=== PATIENT | female | born 1945 | race Caucasian/White ===

== ENCOUNTER → 2016-02-13 | Outpatient (CLI) | payer OTHER, MEDICARE | LOC: MMPC 10:00 | PROVIDERS: ATTEND Podiatrist Foot & Ankle Surgery | DX: B35.1 Tinea unguium (principal) | CPT/HCPCS: 99212; G0463 ==

== ENCOUNTER → 2016-05-13 | Outpatient (CLI) | payer OTHER, MEDICARE | LOC: MMPC 09:00 | PROVIDERS: ATTEND Physician Assistant Medical | DX: H93.8X3 Other specified disorders of ear, bilateral (principal) | CPT/HCPCS: 99213; G0463 ==

== ENCOUNTER → 2016-06-04 | Outpatient (CLI) | payer OTHER, MEDICARE ==
[2016-06-04 07:52] LABS: BASOPHILS # (AUTO) 0.05 10*3/UL; BASOPHILS % (AUTO) 0.7 % (0-1); EOSINOPHILS % (AUTO) 1.5 % (0-8); HEMATOCRIT 45.2 % (37.0-47.0); LYMPHOCYTES # (AUTO) 1.76 10*3/uL; MEAN CORPUSCULAR HEMOGLOBIN 30.6 PG (27-31); MEAN CORPUSCULAR HGB CONC 33.2 g/dL (33-37); MEAN CORPUSCULAR VOLUME 92.2 FL (81-99); MEAN PLATELET VOLUME 9.1 FL (7.4-12.2); MONOCYTES # (AUTO) 0.86 10*3/UL (0.3-0.8); MONOCYTES % (AUTO) 12.5 % (5-15); NEUTROPHILS # (AUTO) 4.09 10*3/UL; NEUTROPHILS % (AUTO) 59.4 % (50-80)
[2016-06-04 07:54] LABS: PLATELET MORPHOLOGY COMMENT NORMAL MORPHOLOGY (NORM); RBC MORPHOLOGY COMMENT NORMAL MORPHOLOGY (NORM); WBC MORPHOLOGY COMMENT NORMAL MORPHOLOGY (NORM)
[2016-06-04 08:02] LABS: HEMOGLOBIN A1C 6.13 % (4.2-6.0)
[2016-06-04 08:03] LABS: CREATININE, URINE 97.9 MG/DL (15-500)
[2016-06-04 08:06] LABS: BLOOD UREA NITROGEN 14 mg/dL (7-22); CHOL/HDL RATIO 4.68 RATIO (0-4.0); EST GLOMERULAR FILTRATION > 60 (>60 ml/min/1.73m(2)); HDL CHOLESTEROL 44 mg/dL (40-150); SERUM ALBUMIN 3.8 g/dL (3.5-4.8); SERUM CHOLESTEROL 206 mg/dL (120-200)
== END ==
LOC: LAB 07:20
PROVIDERS: ATTEND Nurse Practitioner Family
DX: E78.5 Hyperlipidemia, unspecified (principal); I10 Essential (primary) hypertension; E03.9 Hypothyroidism, unspecified; R73.09 Other abnormal glucose
CPT/HCPCS: 80053; 80061; 82043; 83036; 84443; 85025; G0439

== ENCOUNTER → 2016-06-10 | Outpatient (CLI) | payer OTHER, MEDICARE ==
--- NOTE | 2016-06-10 15:40 | DI ---
CT BONE DENSITOMETRY OF THE SPINE AND HIP, 06/10/2016 12:59 PM : Clinical History: Osteopenia. Previous Exam: None at this facility. 3D Quantitative CT (QCT) Bone Mineral Densitometry: The [place] scans are normal. Low dose scans are obtained of the lumbar spine and sampling is obtaine d through the midbodies of L1 and L2. The average volumetric bone mineral density (BMD) of the lumbar spine is 89.9 mg/cm3. This value corresponds to a volumetric T-score of -2.7 and Z-score of 0.3 as a ssessed by this BMD software. Volumetric 3D QCT and areal DEXA T-scores and Z-scores are not directly equivalent. Using the [employer]'s (ACR) volumetric QCT trabecular spine BMD conv ersion table that is closely equivalent to the areal WHO diagnostic categories, this patient falls in to the category of osteopenia of the lumbar spine. CT X-Ray Absorptiometry (CTXA) Hip Bone Mineral Densitometry: Low dose scans are obtained through the hips for assessment of bone mineral density (BMD) and T-score s and Z-scores of the left hip. Total hip BMD: 0.699 mg/cm2 T-score: -1.92 Z-score: Femoral neck BMD: 0.589 mg/cm2 T-score: -1.86 Z-score: Note: T-scores of the spine and hip exhibit discordant readings approximately 40% of the time in eval uated patients. Changes in BMD determined either by volumetric QCT or areal DEXA are more reliable in assessment of change in a patient's BMD status rather than changes in T-scores. The CTXA hip CT bone mineral density measurements and the resultant T-scores and Z-scores are exact hip DEXA scan equival ents. The femoral neck T-score can be used in the WHO's FRAX program for assessing an untreated patie nt's 10 year fracture risk. READING: Osteopenia of the lumbar spine and left hip.
== END ==
LOC: CT 12:53
PROVIDERS: ATTEND Nurse Practitioner Family
DX: M85.80 Other specified disorders of bone density and structure, unspecified site (principal)
CPT/HCPCS: 77078

== ENCOUNTER 2016-07-11 09:46 | Emergency (ER) | payer OTHER, MEDICARE ==
[2016-07-11] MEDS ORDERED: Sodium Chloride 0.9% 1,000 ML PRIMARY IV ONE (10:09)
[2016-07-11] MEDS ORDERED: KETOROLAC 15 MG/1 ML VIAL IVP ONE (10:09)
[2016-07-11] MEDS ORDERED: ONDANSETRON 4 MG/2 ML VIAL IVP ONE (10:09)
[2016-07-11 10:11] VITALS: RESP 16; TEMP 96.8
--- NOTE | 2016-07-11 10:16 | PDOC ---
Abdomen/Flank HPI - General Chief Complaint: Lower Extremity Problem/Injury Stated Complaint: lower quad pain Date Seen by Provider: 07/11/16 Time Seen by Provider: 10:11 Source: POSITIVE: Patient Exam Limitations: POSITIVE: No limitations Nurse's Notes Reviewed & Considered: Yes - History of Present Illness Initial Comments: This very pleasant 70-year-old female comes in today with a chief complaint of right lower quadrant and right flank pain. For approximately a week and a half patient has been having pain in her right flank radiating into her right groin. This seems to occur worse at night when she is lying down, particularly when she is lying on her left side. Today the pain has gotten worse. She denies any headache, changes in her vision, or ringing in her ears. She denies any chest pain, shortness of breath, she does have an occasional cough in the mornings. She denies any fever chills or sweats. She denies vomiting and diarrhea but does have some nausea, in addition she has right lower quadrant pain as well as right flank pain with radiation into her right groin. She further denies any hematuria, dysuria, no urinary problems. No rashes. Body Location Affected: REPORTS: Abdomen, Back Timing: REPORTS: Intermittent Duration: >1 week Severity: Moderate Quality: REPORTS: Cramping, "Pain", Throbbing Abdominal Pain Onset Location: REPORTS: RLQ, Flank Abdominal Pain Radiation: REPORTS: Groin Context: REPORTS: Sleep Modifying Factors: improves with: Movement, Walking Associated Symptoms: REPORTS: Nausea Similar Symptoms Previously: No Recent Care Received: REPORTS: Denies Any Prior Injuries Related to Current Complaint?: No - Patient Home Medications Home Medications: Home Medications Aspirin [Aspir 81] 81 mg PO DAILY 07/24/11 Multivitamin [Multi-Day Vitamins] 1 tab PO DAILY tab 02/16/14 Vit C/Vit E/Lutein/Min/[place]-3 [Ocuvite Softgel] 1 cap PO QD cap 01/09/16 Hydrochlorothiazide 1 tab ORAL QD #90 tab 06/04/16 - Patient Allergies Allergies/Adverse Reactions: Allergies Allergy/AdvReac Type Severity Reaction Status Date / Time No Known Drug Allergies Allergy NOT Verified 07/11/16 09:59 APPLICABLE Past Medical History - heen HEENT History: Denies History Cardiovascular History: Hypertension Respiratory History: Denies History, Snoring Gastrointestinal History: Denies History Genitourinary History: Denies History Endocrine History: Denies History Musculoskeletal History: Back Pain Prosthesis or Implant: No Additional Musculoskeletal History: KNEE PAIN Neurological History: Denies History Blood Disorders: Denies History Psychiatric History: Denies History History of Sexually Transmitted Diseases: No Female Reproductive History: Denies History LMP: ? Cancer History: Denies History In Past Year Been Physically Harmed or Verbally Threatened: No History of MDRO: No History of Other Communicable Diseases: No Tobacco Use: Never Smoker Alcohol Use: Rarely Substance Use Type: None Previous Surgical History: Yes Type / Date of Surgery: HYSTEROSCOPY, D&C/ BREAST BX/ SAURABH/ LEFT THUMB TRIGGER FINGER RELEASE 2013 Anesthesia Reactions: No Malignant Hyperthermia: No Significant Family History: Diabetes, Hypertension Additional Family History: MOTHER- HTN, DM ROS - Limitations ROS Limitations: No Limitations Constitution: REPORTS: Denies Symptoms Cardiovascular: REPORTS: Denies Cardiac Symptoms Respiratory: REPORTS: Cough Non Productive (Cough occurs occasionally in the mornings.) Neurological: REPORTS: Denies Neuro Symptoms Gastrointestinal: REPORTS: Abdominal Pain, Nausea Endocrine: REPORTS: Denies Symptoms Musculoskeletal: REPORTS: Back Pain (Right flank) Genitourinary: REPORTS: Denies Symptoms Eyes: REPORTS: Denies Symptoms ENT: REPORTS: Denies Symptoms Skin: REPORTS: Denies Skin Symptoms Lympathic: REPORTS: Denies Lympathic Symptoms Immunologic: POSITIVE: Denies Symptoms Psychiatric: POSITIVE: Denies Psych Symptoms Abdominal/Flank Pain PE - General Appearance General Appearance: POSITIVE: Alert, Cooperative, No Acute Distress, No Evidence of Trauma - HEENT HEENT: POSITIVE: Head Inspection Nml, Eyes Inspection Nml, Ears Inspection Nml, Nose Inspection Nml, PERRL, EOMI - Neck Neck: POSITIVE: Normal Inspection, No Apparent Injury - Respiratory Respiratory: POSITIVE: No Respiratory Distress, Breath Sounds Normal, Chest Non- Tender - Cardiovascular Cardiovascular: POSITIVE: Regular Rate and Rhythm, Heart Sounds Normal - Chest Chest: POSITIVE: Non Tender - Abdomen Abdomen: Soft: (All Quadrants), Normal Bowel Sounds: (All Quadrants), Denies Tenderness: (LUQ), (RUQ), (LLQ), Tenderness Noted: (RLQ) - Back Back: POSITIVE: Normal Inspection - Skin Skin: POSITIVE: Intact, Normal For Race, Warm, Dry, No Rash - Extremities Extremity: Non-Tender: (All Extremities), Normal ROM: (All Extremities), Normal Inspection: (All Extremities), Pelvis Stable: (All Extremities) - Neurological Neurological: POSITIVE: Affect Apporpriate, Oriented X3, Motor Normal, Sensation Normal - Psychological Psychiatric: POSITIVE: Affect Appropriate, Mood Appropriate Abdomen Progress - Results Reviewed by me Xrays/CTs/US Reviewed by me: Yes Discussed with Radiologist: Yes Lab Results Reviewed: Yes Lab Results:: Laboratory Results 07/11/16 07/11/16 Range/Units 09:45 10:17 WBC 6.55 (4.8-10.8) 10^3/uL RBC 4.89 (4.20-5.40) 10^6/uL Hgb 15.0 (12.0-16.0) g/dL Hct 45.5 (37.0-47.0) % MCV 93.0 (81-99) FL MCH 30.7 (27-31) PG MCHC 33.0 (33-37) g/dL RDW Std Deviation 49.6 (39-50) fL RDW Coeff of Kristen 15.0 H (11.5-14.5) % Plt Count 269 (140-350) 10*3/uL MPV 9.1 (7.4-12.2) FL Immature Gran % (Auto) 0.2 (0-5) % Neut % (Auto) 62.4 (50-80) % Lymph % (Auto) 22.7 (10-50) % [place] % (Auto) 12.4 (5-15) % Eos % (Auto) 1.2 (0-8) % Baso % (Auto) 1.1 H (0-1) % Immature Gran # (Auto) 0.01 10*3/UL Neut # (Auto) 4.09 10*3/UL Lymph # (Auto) 1.49 10*3/uL [place] # (Auto) 0.81 H (0.3-0.8) 10*3/UL Eos # (Auto) 0.08 10*3/UL Baso # (Auto) 0.07 10*3/UL WBC Morphology Comment Normal morphology (NORM) Plt Morphology Comment Normal morphology (NORM) RBC Morph Comment Normal morphology (NORM) Sodium 141 (135-145) meq/L Potassium 3.5 L (3.8-5.2) meq/L Chloride 102 (98-112) meq/L Carbon Dioxide 29 (23-33) meq/L Anion Gap 10 (5-20) BUN 15 (7-22) mg/dL Creatinine 0.6 (0.50-1.20) mg/dL Estimated GFR > 60 (>60 ml/min/1.73m(2)) BUN/Creatinine Ratio 25.00 H (6-20) Glucose 108 (78-110) mg/dL Calculated Osmolality 293.0 H (267-292) mOsm/kg Calcium 8.7 (8.7-10.7) mg/dL Total Bilirubin 0.9 (0.3-1.2) mg/dL AST 31 (8-39) IU/L ALT 39 (9-52) IU/L Alkaline Phosphatase 87 (38-126) IU/L C-Reactive Protein 0.6 (0.0-0.9) mg/dL Total Protein 7.5 (6.1-8.0) g/dL Albumin 4.3 (3.5-4.8) g/dL Globulin 3.3 (2.50-4.10) g/dL Albumin/Globulin Ratio 1.30 (1.3-2.0) mg/g Ur Collection Type Clean catch urine Urine Color Yellow Urine Clarity Clear (CLEAR) Urine pH 8.5 (5.0-8.5) Ur Specific [place] 1.015 (1.005-1.030) Urine Protein 30 (NEG) mg/dl Urine Glucose (UA) Negative (NEG) mg/dL Urine Ketones Negative (NEG) Urine Occult Blood Negative (NEG) Urine Nitrate Negative (NEG) Urine Bilirubin Negative (NEG) Urine Urobilinogen 2.0 (0.2) EU/dL Ur Leukocyte Esterase Negative (NEG) Urine RBC None (NONE) /hpf Urine WBC 1-3 (NONE) Ur Squamous Epith Cells Many (NONE) Ur Renal Epithelial Cell None (NONE) Urine Crystals None Urine Bacteria Rare (NONE) Urine Casts None (NONE) Urine Mucus Few (NONE) Urine Trichomonas None (NONE) Urine Yeast None (NONE) Ur Culture Indicated? Culture not set - Patient's Progress Pain Medication Addressed: POSITIVE: Yes Re-examine Time: 14:48 Status: POSITIVE: Improved MDM / ED Course: Patient was examined, an IV started, blood drawn and sent to the lab for studies , radiographic examinations were obtained. Patient received a liter of normal saline, Zofran, and Toradol. Her pain did improve. Findings: CBC is unremarkable, comprehensive metabolic panels within normal limits, urinalysis is negative. CT scan shows calcified mass in the uterus. Ultrasound shows calcification present and uterus reminiscent of a fibroid. Assessment: Abdominal pain of unknown etiology. This is likely related to the fibroid seen in the uterus. Plan: Discharge home. 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 - Consult Counseled: POSITIVE: Patient, RE: Lab Results, RE: Radiology Results, RE: DX, RE : Need for F/U Patient Care Time - Estimated PCT Patient Care Time (In Minutes): 45 Vital Signs - Recent Vital Signs Vital Signs: Vital Signs (Last 8 hours) Temp Pulse Resp BP Pulse Ox 07/11/16 09:58 96.8 F 103 H 16 135/97 96 07/11/16 09:46 96.8 F 103 H 16 135/97 96 - VS Reviewed Vital Signs Reviewed: Yes Discharge Clinical Impression: Abdominal pain, Uterine leiomyoma Discharge Disposition: Discharged to Home Condition: Stable Patient Instructions Given at Discharge: Acute Abdominal Pain (ED), Uterine Fibroids (ED)
[2016-07-11 10:17] LABS: BILIRUBIN,URINE NEGATIVE (NEG); CLARITY,URINE CLEAR (CLEAR); COLOR,URINE YELLOW; GLUCOSE, URINE (UA) NEGATIVE (NEG); NITRATE,URINE NEGATIVE (NEG); OCCULT BLOOD,URINE NEGATIVE (NEG); PH,URINE 8.5 (5.0-8.5); PROTEIN,URINE 30 mg/dl (NEG)
[2016-07-11 10:23] LABS: BASOPHILS # (AUTO) 0.07 10*3/UL; BASOPHILS % (AUTO) 1.1 % (0-1); EOSINOPHILS # (AUTO) 0.08 10*3/UL; EOSINOPHILS % (AUTO) 1.2 % (0-8); HEMATOCRIT 45.5 % (37.0-47.0); LYMPHOCYTES # (AUTO) 1.49 10*3/uL; MEAN CORPUSCULAR HEMOGLOBIN 30.7 PG (27-31); MEAN PLATELET VOLUME 9.1 FL (7.4-12.2); MONOCYTES # (AUTO) 0.81 10*3/UL (0.3-0.8); MONOCYTES % (AUTO) 12.4 % (5-15); NEUTROPHILS # (AUTO) 4.09 10*3/UL; NEUTROPHILS % (AUTO) 62.4 % (50-80); RED BLOOD COUNT 4.89 10^6/uL (4.20-5.40)
[2016-07-11 10:24] LABS: SQUAMOUS EPITHELIAL CELL,UR MANY; URINE SAMPLE TYPE CLEAN CATCH URINE
[2016-07-11 10:25] LABS: BACTERIA,URINE RARE
[2016-07-11 10:25] LABS: PLATELET MORPHOLOGY COMMENT NORMAL MORPHOLOGY (NORM); RBC MORPHOLOGY COMMENT NORMAL MORPHOLOGY (NORM); WBC MORPHOLOGY COMMENT NORMAL MORPHOLOGY (NORM)
[2016-07-11 10:43] LABS: BLOOD UREA NITROGEN 15 mg/dL (7-22); C-REACTIVE PROTEIN 0.6 mg/dL (0.0-0.9); CALCIUM 8.7 mg/dL (8.7-10.7); EST GLOMERULAR FILTRATION > 60 (>60 ml/min/1.73m(2)); SERUM ALBUMIN 4.3 g/dL (3.5-4.8)
--- NOTE | 2016-07-11 11:51 | DI ---
HISTORY: Right lower quadrant pain for one week. TECHNIQUE: Contiguous axial enhanced images of the abdomen and pelvis were obtained from the lung ba ses through the ischial tuberosities. The images were then submitted for interpretation. FINDINGS: Limited sections of the lung bases demonstrate no focal pulmonary mass. The liver, spleen, surgically removed gallbladder, atrophied pancreas, both kidneys, and both adrenal glands demonstrate no acute findings. The stomach is collapsed, with residue. There is thickening of the GE junction. The aorta and IVC demonstrate no acute findings. There is atherosclerotic calcification of the aorta . There is moderate to severe constipation. There is no free air or free fluid. The small bowel loops are not dilated. Segmental thickening of the sigmoid colon is probably due to a phase of peristalsi s, although correlation with colonoscopy is recommended especially in this age group. There is no ob struction. The appendix is not clearly identified, although there are no secondary signs of appendicitis. The uterus is enlarged, with a focal calcification measuring approximately 3.5 cm. Suggest correlati on with pelvic ultrasound. Uterine fibroids likely. Bilateral adnexal densities favored to be ovari an in origin. This can be confirmed with a pelvic ultrasound. The urinary bladder is partially collapsed. Visualized osseous structures demonstrate no destructive abnormality. There is diffuse degenerative change. IMPRESSION: 1. There is moderate to severe constipation. There is no free air or free fluid. The small bowel lo ops are not dilated. Segmental thickening of the sigmoid colon is probably due to a phase of perista lsis, although correlation with colonoscopy is recommended especially in this age group. There is no obstruction. 2. The uterus is enlarged, with a focal calcification measuring approximately 3.5 cm. Suggest correl ation with pelvic ultrasound. Uterine fibroids likely. Bilateral adnexal densities favored to be ov ivan in origin. This can be confirmed with a pelvic ultrasound.
--- NOTE | 2016-07-11 14:25 | DI ---
HISTORY: Abdominal pain. TECHNIQUE: Sonographic images, including transvaginal images of the pelvis were obtained and submitte d for interpretation. FINDINGS: The uterus measures 9.9 x 4.3 x 5.5 cm and is anteverted. The right ovary measures 2.2 x 1.6 x 1.5 cm. The left ovary is not well-visualized. There is no large mass in the left adnexa. Normal arterial waveforms noted within the right ovary. There is a calcified lesion within the uterus measuring approximately 3.6 x 3.6 x 3.4 cm at the fundu s. This is reminiscent of calcified fibroid. There is a tiny echogenic lesion in the cervix with no significant vascular flow (series 1 image 40). This lesion was not measured. There are scattered nabothian cysts within the cervix. The endometrium measures 4 mm. IMPRESSION: 1. There is a calcified lesion within the uterus measuring approximately 3.6 x 3.6 x 3.4 cm at the fu ndus. This is reminiscent of calcified fibroid. 2. There is a tiny echogenic lesion in the cervix with no significant vascular flow (series 1 image 4 0). This lesion was not measured. There are scattered nabothian cysts within the cervix. NOTE: The interpreting Radiologist was not present at the time of ultrasound interrogation.
== END 2016-07-11 15:16 | disposition home or self-care (01) ==
LOC: ER 09:46
DX: R10.31 Right lower quadrant pain (principal); D25.9 Leiomyoma of uterus, unspecified; K59.00 Constipation, unspecified; R11.0 Nausea; R05 Cough; I10 Essential (primary) hypertension
CPT/HCPCS: 74177; 76830; 76856; 80053; 81001; 81003; 85025; 86140; 96374; 96375; 99284; J1885; J2405; J7030

== ENCOUNTER → 2016-08-13 | Outpatient (CLI) | payer OTHER, MEDICARE | LOC: MMPC 10:00 | PROVIDERS: ATTEND Podiatrist Foot & Ankle Surgery | DX: B35.1 Tinea unguium (principal); L60.0 Ingrowing nail | CPT/HCPCS: 99212; G0463 ==

== ENCOUNTER → 2016-09-01 | Outpatient (CLI) | payer OTHER, MEDICARE | LOC: MMPC 11:11 | PROVIDERS: ATTEND Surgery | DX: Z86.010 Personal history of colon polyps (principal); D25.1 Intramural leiomyoma of uterus | CPT/HCPCS: 99212; 99214; G0463 ==

== ENCOUNTER 2016-09-07 07:29 | Day surgery (SDC) | payer OTHER, MEDICARE ==
[2016-09-07 07:47] VITALS: RESP 16
[2016-09-07] MEDS ORDERED: LIDOCAINE W/ SODIUM BICARB 0.5 ML SYR ONE (08:34)
[2016-09-07] MEDS ORDERED: Lactated Ringers 1,000 ML PRIMARY IV ONE (08:34)
--- NOTE | 2016-09-07 08:40 | GEN.OPNOTE ---
Colonoscopy Procedure Note Surgery Date: 09/07/16 Preoperative Diagnosis: Personal history of colon polyps Postoperative Diagnosis: Colon polyp at 100 cm Procedure: Colonoscopy with snare polypectomy Surgeon: Thierno Lorenz MD Anesthesia Provider: Sruthi Horn CRNA Anesthesia Type: MAC Indications: Patient has a personal history of colon polyps and is having a colonoscopy every 5 years Findings: Prep : Excellent Cecum : Olympus video colonoscopy scope inserted all the way to the cecum. Ileocecal valve along with appendiceal orifice identified. Patient had no pathology seen in the cecum Ascending : Ascending colon had no polyps tumors or cancers Transverse : Transverse colon proximal had 100 cm which I believe was in the area of the splenic flexure had a small polyp on a broad based polyp stock. This is easily removed with snare polypectomy. Sigmoid : Sigmoid colon was done to but otherwise normal Rectum : Active has some internal hemorrhoids not actively bleeding is be class a Digital Rectal Exam : A lubricated flexible colonoscope was inserted and passed to the blind end of the cecum. Additional Details: Colonoscopy proximal be 5 years
[2016-09-07 09:04] VITALS: TEMP 97.5
== END 2016-09-07 09:12 | disposition home or self-care (01) ==
LOC: SDSC 07:29
PROVIDERS: ATTEND Surgery
DX: Z86.010 Personal history of colon polyps (principal); K63.5 Polyp of colon
CPT/HCPCS: 45385 ×2; J2704; 88305; J7120